=== PATIENT | female | born 1965 | race African-American/Black ===

== ENCOUNTER 2024-12-06 12:59 | Inpatient (IN) | payer OTHER ==
[2024-12-06] VITALS (24 sets, daily range): BP systolic 117–142; BP diastolic 90–107; PULSE 72–85; RESP 13–23; TEMP 36.6–36.7; O2SAT 83–100
[~2024-12-06] VITALS: Ht 172.7 cm; Wt 116.8 kg
[2024-12-06 13:46] LABS: BASOPHILS % 0.4 % (0.0-2.0); EOSINOPHILS % 1.2 % (0.0-5.0); HEMATOCRIT. 36.9 % (36.0-48.0); HEMOGLOBIN. 12.0 g/dL (12.0-16.0); LYMPHOCYTES % 26.2 % (20.0-50.0); MEAN PLATELET VOLUME 7.7 fl (7.4-10.4); MONOCYTES % 6.9 % (2.0-8.0); NEUTROPHILS % 65.3 % (40.0-76.0); PLATELET 193 x1000/uL (130-400); RED BLOOD CELL COUNT 4.26 mill/uL (4.2-5.4); RED CELL DISTRIBUTION WIDTH 15.6 % (11.6-14.6)
[2024-12-06] MEDS: ONDANSETRON HCL 4MG/2ML INJ IV ONE (13:49)
[2024-12-06 14:19] LABS: CREATININE 1.0 mg/dL (0.6-1.0); UREA NITROGEN BLOOD 17 mg/dL (9-23)
[2024-12-06 14:21] LABS: ASPARTATE AMINOTRANSFERASE 99 IU/L (<34); BILIRUBIN DIRECT 0.2 mg/dL (<=3.0); BILIRUBIN TOTAL 0.6 mg/dL (0.1-1.0); PROTEIN TOTAL 7.0 g/dL (6.0-8.3)
[2024-12-06 14:33] LABS: TROPONIN I HIGH SENSITIVITY 115 ng/L (3.0-34)
[2024-12-06] MEDS ORDERED: TETANUS, DIPHTHERIA, PERTUSSIS VAC/PF 0.5ML (>10YR OLD) IM ONE (14:45)
[2024-12-06] MEDS ORDERED: HEPARIN 25,000 UNITS PREMIX 250 ML IV PRN (15:30)
[2024-12-06 15:53] LABS: BG BASE EXCESS 1.7 mmol/L (-2.0-3.0); BG CARBOXYHEMOGLOBIN 0.3 % (0.5-1.5); BG DEOXYHEMOGLOBIN 1.8 % (0.0-5.0); BG FLOW(L/min) 33.00 L/min; BG FRACTION INSPIRED OXYGEN 100; BG HCO3 ACT 25.9 mmol/L (21.0-28.0); BG METHEMOGLOBIN 0.3 % (0.5-1.5); BG OXYGEN SATURATION 98.2 % (94.0-98.0); BG OXYHEMOGLOBIN 97.6 % (94.0-98.0); BG PCO2 39.6 mmHg (32.0-45.0); BG PH 7.434 (7.350-7.450); BG PO2 100.5 mmHg (83.0-108.0); BG SAMPLE SITE RIGHT RADIAL; BG TOTAL HEMOGLOBIN 12.6 g/dL (12.0-16.0); BG VENT MODE HIGH FLOW
[2024-12-06] MEDS ORDERED: HEPARIN BOLUS PRN aPTT <36 IV (16:15)
[2024-12-06] MEDS ORDERED: HEPARIN BOLUS PRN aPTT 37-44 IV (16:15)
[2024-12-06] MEDS: LIDOCAINE HCL 1% 20ML VIAL INFIL ONE (16:22)
[2024-12-06] MEDS: TETANUS, DIPHTHERIA, PERTUSSIS VAC/PF 0.5ML (>10YR OLD) IM ONE (17:28)
[2024-12-06 17:32] LABS: INR 1.0
[2024-12-06 17:47] LABS: TROPONIN I HIGH SENSITIVITY 1371 ng/L (3.0-34)
[2024-12-06] MEDS: HEPARIN 80 UNITS/KG BOLUS IV SCH (17:50)
[2024-12-06] MEDS: HEPARIN 25,000 UNITS PREMIX 250 ML IV PRN (18:02)
[2024-12-06] MEDS ORDERED: DIPHENHYDRAMINE 50MG/ML VIAL IV PRN (20:00)
[2024-12-06] MEDS ORDERED: ZOLPIDEM TARTRATE 5MG TABLET PO PRN (20:00)
[2024-12-06] MEDS ORDERED: ONDANSETRON HCL 4MG/2ML INJ IV PRN (20:00)
[2024-12-06] MEDS ORDERED: ACETAMINOPHEN 325MG TABLET PO PRN ×2 (20:00)
[2024-12-06] MEDS ORDERED: CLONIDINE 0.1MG TABLET PO PRN (20:00)
[2024-12-06] MEDS ORDERED: MAGNESIUM/ALUMINUM HYDROXIDE/SIMETHICONE 30ML UDC PO PRN (20:00)
[2024-12-06] MEDS: SODIUM CHLORIDE 0.9% 1,000 ML IV SCH (22:19)
[2024-12-06] MEDS ORDERED: IOHEXOL-350 100 ML BOTTLE ONE (23:50)
[2024-12-07] VITALS (101 sets, daily range): BP systolic 104–148; BP diastolic 70–125; PULSE 74–99; RESP 10–32; TEMP 36.7–36.9; O2SAT 90–100
[2024-12-07] MEDS: PANTOPRAZOLE SODIUM 40 MG/VIAL IV SCH (08:54)
[2024-12-07 10:39] LABS: BG BASE EXCESS 0.8 mmol/L (-2.0-3.0); BG CARBOXYHEMOGLOBIN 0.4 % (0.5-1.5); BG DEOXYHEMOGLOBIN 4.2 % (0.0-5.0); BG FLOW(L/min) 30.00 L/min; BG FRACTION INSPIRED OXYGEN 60; BG HCO3 ACT 24.6 mmol/L (21.0-28.0); BG METHEMOGLOBIN 0.3 % (0.5-1.5); BG OXYGEN SATURATION 95.8 % (94.0-98.0); BG OXYHEMOGLOBIN 95.1 % (94.0-98.0); BG PCO2 36.3 mmHg (32.0-45.0); BG PH 7.449 (7.350-7.450); BG PO2 75.2 mmHg (83.0-108.0); BG SAMPLE SITE RIGHT RADIAL; BG TOTAL HEMOGLOBIN 11.9 g/dL (12.0-16.0); BG VENT MODE HIGH FLOW
[2024-12-07 17:21] LABS: TROPONIN I HIGH SENSITIVITY 538 ng/L (3.0-34)
[2024-12-07] MEDS: THROAT LOZENGES-BENZOCAINE/MENTH/CETYLPYRD CL LOZENGES MM PRN (17:53)
[2024-12-08] VITALS (50 sets, daily range): BP systolic 106–156; BP diastolic 76–103; PULSE 56–84; RESP 11–32; TEMP 36.4–36.8; O2SAT 93–100
[2024-12-08 00:04] LABS: TROPONIN I HIGH SENSITIVITY 396 ng/L (3.0-34)
[2024-12-08 00:24] LABS: CLARITY URINE CLEAR (CLEAR); COLOR URINE YELLOW (YELLOW); GLUCOSE URINE NEGATIVE (NEGATIVE); KETONES URINE NEGATIVE (NEGATIVE); LEUKOCYTE ESTERASE URINE NEGATIVE (NEGATIVE); NITRITE URINE NEGATIVE (NEGATIVE); OCCULT BLOOD URINE NEGATIVE (NEGATIVE); PH URINE 6.0 (4.5-8.0); PROTEIN URINE NEGATIVE (NEGATIVE); SPECIFIC GRAVITY URINE 1.007 (1.005-1.030); UROBILINOGEN URINE 0.2 E.U./dL (0.2-1.0)
[2024-12-08 06:46] LABS: BASOPHILS % 0.4 % (0.0-2.0); EOSINOPHILS % 1.6 % (0.0-5.0); HEMATOCRIT. 32.9 % (36.0-48.0); HEMOGLOBIN. 10.8 g/dL (12.0-16.0); LYMPHOCYTES % 28.6 % (20.0-50.0); MEAN PLATELET VOLUME 8.5 fl (7.4-10.4); MONOCYTES % 10.0 % (2.0-8.0); NEUTROPHILS % 59.4 % (40.0-76.0); PLATELET 170 x1000/uL (130-400); RED BLOOD CELL COUNT 3.80 mill/uL (4.2-5.4); RED CELL DISTRIBUTION WIDTH 15.4 % (11.6-14.6)
[2024-12-08 07:03] LABS: CREATININE 0.9 mg/dL (0.6-1.0); UREA NITROGEN BLOOD 8 mg/dL (9-23)
[2024-12-08 07:05] LABS: PHOSPHORUS 2.3 mg/dL (2.5-4.9)
[2024-12-08 07:08] LABS: INR 1.0
[2024-12-08] MEDS ORDERED: IODIXANOL 320 MG/ML 150ML BOTTLE IV ONE (07:39)
[2024-12-08] MEDS ORDERED: LIDOCAINE HCL 1% 20ML VIAL ONE (07:39)
[2024-12-08] MEDS ORDERED: HEPARIN 1000 UNITS/ML 10ML ONE ×2 (07:39→08:33)
[2024-12-08 08:16] LABS: TROPONIN I HIGH SENSITIVITY 363 ng/L (3.0-34)
[2024-12-08] MEDS ORDERED: DIPHENHYDRAMINE 50MG/ML VIAL ONE (08:25)
[2024-12-08] MEDS ORDERED: MIDAZOLAM HCL 2 MG/2 ML VIAL ONE (08:25)
[2024-12-08] MEDS ORDERED: FENTANYL CITRATE/PF 50MCG/ML 2ML VIAL ONE (08:25)
[2024-12-08] MEDS ORDERED: Acetaminophen (11:11)
[2024-12-08] MEDS: APIXABAN 5 MG TABLET PO SCH (21:24)
[2024-12-08] MEDS: BISACODYL 5MG TABLET PO PRN (22:26)
[2024-12-09] VITALS: BP 152/86; PULSE 78; RESP 21; TEMP 36.7; O2SAT 100
[2024-12-09 04:00] VITALS: BP 150/93; PULSE 77; RESP 24; TEMP 36.8; O2SAT 99
[2024-12-09 05:50] LABS: BASOPHILS % 0.4 % (0.0-2.0); EOSINOPHILS % 1.7 % (0.0-5.0); HEMATOCRIT. 33.9 % (36.0-48.0); HEMOGLOBIN. 11.0 g/dL (12.0-16.0); LYMPHOCYTES % 17.2 % (20.0-50.0); MEAN PLATELET VOLUME 8.5 fl (7.4-10.4); MONOCYTES % 10.0 % (2.0-8.0); NEUTROPHILS % 70.7 % (40.0-76.0); PLATELET 174 x1000/uL (130-400); RED BLOOD CELL COUNT 3.92 mill/uL (4.2-5.4); RED CELL DISTRIBUTION WIDTH 15.3 % (11.6-14.6)
[2024-12-09 05:56] LABS: CREATININE 0.8 mg/dL (0.6-1.0); UREA NITROGEN BLOOD 8 mg/dL (9-23)
[2024-12-09 08:00] VITALS: BP 156/96; PULSE 84; RESP 23; TEMP 37.7; O2SAT 96
[2024-12-09] MEDS: ENOXAPARIN 120MG/0.8ML SYR SUBCUT SCH (09:30)
[2024-12-09] MEDS: POTASSIUM CHLORIDE 20MEQ TABLET SR PO NR (10:25)
[2024-12-09 12:00] VITALS: BP 145/83; PULSE 87; RESP 21; TEMP 37.2; O2SAT 96
[2024-12-09] MEDS ORDERED: AMLODIPINE 5MG TABLET PO SCH (14:15)
[2024-12-09 16:00] VITALS: BP 142/80; PULSE 83; RESP 18; TEMP 36.8; O2SAT 98
[2024-12-09] MEDS ORDERED: APIX5TAB MT (16:02)
[2024-12-09 16:09] VITALS: BP 142/80; PULSE 83; RESP 18; TEMP 98.3
[2024-12-15] MEDS ORDERED: APIXABAN 5 MG TABLET PO SCH (21:00)
== END 2024-12-09 16:38 | disposition home or self-care (01) | DRG 163 ==
LOC: EDBD 12:59 → ER 13:30 → EDBEDREQ 16:09 → EDBEDREQSVC 16:09 → EDBEDREQTM 16:09 → ENRESERV 17:08 → CVICU 18:08 → 3WST 12-08 23:30
PROVIDERS: ADMIT Internal Medicine; ATTEND Internal Medicine
PROC: 0HQ1XZZ Repair Face Skin, External Approach (ICD-10-PCS; 2024-12-06)
PROC: 5A0945A Assistance with Respiratory Ventilation, 24-96 Consecutive Hours, High Flow/Velocity Cannula (ICD-10-PCS; 2024-12-06)
PROC: 02CQ3ZZ Extirpation of Matter from Right Pulmonary Artery, Percutaneous Approach (ICD-10-PCS; principal; 2024-12-08)
PROC: 02CR3ZZ Extirpation of Matter from Left Pulmonary Artery, Percutaneous Approach (ICD-10-PCS; 2024-12-08)
PROC: B31T1ZZ Fluoroscopy of Left Pulmonary Artery using Low Osmolar Contrast (ICD-10-PCS; 2024-12-08)
PROC: B31S1ZZ Fluoroscopy of Right Pulmonary Artery using Low Osmolar Contrast (ICD-10-PCS; 2024-12-08)
DX: I26.02 Saddle embolus of pulmonary artery with acute cor pulmonale (principal); I21.A1 Myocardial infarction type 2; J96.01 Acute respiratory failure with hypoxia; I82.432 Acute embolism and thrombosis of left popliteal vein; G90.89 Other disorders of autonomic nervous system; I95.9 Hypotension, unspecified; S01.511A Laceration without foreign body of lip, initial encounter; E66.9 Obesity, unspecified; Z68.39 Body mass index [BMI] 39.0-39.9, adult; W18.39XA Other fall on same level, initial encounter; Y93.89 Activity, other specified; Y92.89 Other specified places as the place of occurrence of the external cause; Y99.8 Other external cause status
CPT/HCPCS: 36415; 36600; 37184; 37185; 70486; 71045; 71275; 75743; 80048; 80076; 81003; 82375; 82805; 83735; 83880; 84100; 84484; 85025; 85347; 86850; 86900; 90715; 93005; 93306; 93970; 94070; 94664; 98960; 99285; A4606; C1760; C1769; C1893; J1200; J1644; J1650; J2003; J2250; J2405; J2470; J3010; J7030; Q9967; C1757; C1894